=== PATIENT | male | born 1945 | race Caucasian/White ===

== ENCOUNTER 2021-05-30 02:44 | Outpatient (CLI) | payer OTHER, SELFPAY ==
--- NOTE | 2021-05-30 | DI.MRI_ITS ---
Exam(s) MR PELVIS WO EXAM: MR PELVIS WO CLINICAL HISTORY: [id number],PROSTATE CA,C61,RADIATION PLANNING,SP FIDUCIAL MARKER AND HYDR TECHNIQUE: Multiplanar multisequence MRI of Pelvis was performed. No IV contrast. COMPARISON: No exams were available for comparison FINDINGS: Prostate gland: Prostate gland measures 2.8 centimeters AP x 4.5 cm transverse by 3.8 cm craniocaudal . There is HydroGel positioned between the prostate gland and rectum which measures 5.4 cm craniocaudal by 1.1 cm AP by 2.5 cm wide Urinary bladder: Somewhat trabeculated bladder wall. No diverticuli avid. No distinct mass Lymph nodes: There is small lymph nodes bilaterally. Largest on the right side measures 0.8 cm. Sli ghtly smaller lymph node on the right measures 6 millimeters. On the left there is an 8 millimeter l ymph node. Soft tissues: There are fat containing bilateral inguinal hernias. No bowel loops therein. Osseous: No evidence of osseous metastatic disease in the field of view. IMPRESSION: Noncontrast prostate MRI for radiation treatment planning purposes, with findings as above. DATA REPOSITORY:
--- NOTE | 2021-05-30 18:26 | DI.VRAD_ITS ---
PROCEDURE INFORMATION: Exam: MR Pelvis Without Contrast; Prostate Exam date and time: 05/30/2021 10:10 AM Age: 75 years old Clinical indication: Screening exam; Radiation planning prostate CA. Volumetric study sequence LABS AND CLINICAL REPORTS: Prostate-specific antigen (PSA, ng/mL): Not submitted. Previous biopsies: Unknown. TECHNIQUE: Imaging protocol: Magnetic resonance images of the pelvis without intravenous contrast. Exam focused on the prostate. COMPARISON: No relevant prior studies available. FINDINGS: Prostate size: The prostate gland measures 2.8 cm in AP by 4.4 cm in transverse by 3.8 cm in craniocaudal dimension. Hydrogel between the prostate gland and rectum measuring 1.5 x 2.5 x 5.5 cm . The protocol is not adequate for assessing the patient's biopsy-proven prostate carcinoma. Prostate volume: 46.8 cc. Hemorrhage: No intraparenchymal hemorrhage. Bladder: Trabeculated bladder wall. Lymph nodes: Multiple bilateral pelvic lymph nodes. The largest right upper pelvic lymph node measures 0.8 cm on series 5001, image 1. Additional lymph node measures 0.6 cm on image 6. Contralateral left pelvic lymph node measures 0.7 cm on series 5001, image 9. Bones/joints: Unremarkable. No osseous metastasis. Soft tissues: Bilateral fat containing inguinal hernias without evidence for bowel involvement, left greater than right. Sigmoid diverticula. IMPRESSION: Noncontrast prostate MRI for radiation treatment planning purposes. Dictated and Authenticated by: Marya Rascon MD. Ordering:MELLISSA Da Silva MD
== END 2021-05-30 03:04 ==
PROVIDERS: PCP Nurse Practitioner Family; Visit Provider Radiology Radiation Oncology
DX: C61 Malignant neoplasm of prostate (principal); N32.89 Other specified disorders of bladder; Z97.8 Presence of other specified devices
CPT/HCPCS: 72195